=== PATIENT | male | born 1980 | race Caucasian/White ===

== ENCOUNTER 2024-03-18 10:40 | Outpatient (AMB) | payer OTHER, SELFPAY ==
[2024-03-18 10:45] VITALS: PULSE 87; O2SAT 95
--- NOTE | 2024-03-18 10:45 | MHC.OFFVIS ---
Vital Signs 03/18/24 10:45 Position Sitting Pulse 87 Pulse Source Pulse Oximeter Pulse Oximetry (%) 95 Oxygen Delivery Method Room Air Intake Visit Reasons: ENP-Ongoing Headaches-CONF Intake Note: Patient presents for ongoing headaches.patient had a sudden stress headache during intercourse very acute and sharp.headaches still having normal headaches a month. Allergies No Known Allergies Allergy (Verified 03/18/24 10:48) Medication List - Last Reconciled 03/18/24 by Gris Gaspar, GENERAL [employer]OR FORKL[employer] OPERATOR beclomethasone dipropionate 80 mcg/actuation (Qvar RediHaler) inhalation HPI Comments Details: Right-handed 43-yr-old male presents for new pt evaluation of headache disorder. Pt reports that at that end of last year he had 2 headaches triggered by sexual intercourse during the day. He does not believe that he had any headache prior to engaging in sexual intercourse on the day of those attacks. The attack was a ice pick sharp squeezing, unsure of exact head location. The severe pain was sudden and very brief at or just after climax, and then faded away over 10 minutes or so. He denies any other associated symptoms. The 1st attack was more severe, and the 2nd attack about 1.5 weeks later was milder but still significant - just w/o the ice pick sensation. His girlfriend thought that pt had had a similar attack prior, however pt states he does does not think so. Rather, states- in the past, he has had rare episodes of heart palpitations during sexual exertion or physical exertion (for instance climbing [place] on a hot day). 09/13/24: Unremarkable MRI and MRA of the head. PMH and ROS are also notable for:? Musculoskeletal disorders or injury: occasional has tweaked his back- has done PT. Neck tightness. Mood d/o: Social anxiety, Respiratory d/o: Asthma GI d/o: IBS-D, no constipation Family history of migraine or other headache disorder: mother has migraine Pertinent denials include: History of concussion/head injury, Respiratory d/o, CV disease, Clotting or hematology d/o, Endocrine or metabolic d/o, History of seizure, syncope, or drop attacks, Leg Cramps, Lifestyle considerations: Sleep routine: Usual bedtime: 1:30am and wake-up time: 8:30am Sleep difficulties: Endorses: DORA- has just been dx'd after HST and had a PAP titration- states slept better during his PAP titration study. Snoring, Excessive daytime sleepiness, Fatigue,Apneas, Gasping Arousals, Bruxism Caffeine use: 5-6 cans of coke zero, sometimes am iced coffee Substance use:none Exercise:?Is exercising more, is training to do an incline [place] climb in Jul. 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 Headache questionnaire:? Pt's typical headache characteristics: Prodrome symptoms: None Aura: None Pain intensity: mild- moderate Location, quality, characteristics: Throbbing headache, no specific location Associated symptoms: None Postdrome: None Triggers: Exacerbated by bending over. Maybe poor sleep Time of day: No specific time of day- but not during the night. Duration and Frequency: About twice a month, may last 2-4 hrs How does headache impact your life? None Current acute medication use/interventions: Advil, may need to repeat dose x's 1. Current preventative medication use: None Non-pharmacological interventions: None PFSH Surgical History (Updated 03/18/24 @ 10:49 by SANDEEP Gonzales) Hx of appendectomy Family History (Updated 03/18/24 @ 10:49 by SANDEEP Gonzales) Father Cancer Social History (Updated 03/18/24 @ 10:50 by SANDEEP Gonzales) Alcohol intake: never Patient Tobacco Use Status: Never used Tobacco Physical Exam Vital Signs: Last Vital Signs Pulse 87 03/18/24 10:45 Pulse Ox 95 03/18/24 10:45 Oxygen Delivery Method Room Air 03/18/24 10:45 Const Orientation/consciousness: patient oriented x3 HEENT Other: No palpable scalp tenderness. Head: Yes normocephalic Resp Effort & Inspection: normal respiratory effort and able to speak in complete sentences Neuro General: patient oriented x3 Cranial nerves: Yes CN's II-XII intact bilaterally Cognition (Neuro): normal cognition Gait exam (Neuro): Normal gait present Motor exam (neuro): 5/5 motor strength present throughout Deep tendon reflexes (DTR's): Right triceps reflex intensity grade: 2+, Left triceps reflex intensity grade: 2+, Rt Biceps (C5, C6): 2+, Left biceps reflex intensity grade: 2+, Right brachioradialis reflex intensity grade: 2+, Left brachioradialis reflex intensity grade: 2+, Right patellar reflex intensity grade: 2+ and Left patellar reflex intensity grade: 2+ Coordination: [id number] test normal Pupils: Normal pupillary reactivity/response: bilateral Psych Appearance: grossly normal Mental Status: mental status grossly normal Speech and movement: Normal speech and movement present Affect: normal affect Attitude: cooperative Thought process: Normal thought process present Results Reviewed Results Reviewed: 09/13/24, MRA Head W/O contrast [facility] VISIT NUMBER:[id number] Patient Name: Federico Perrin Date of : 1980 Date of Exam: 09-13-2023 Referring Physician: Chris Wilson [facility] [address] [place] [address] Exam: MR Brain Angio (C-) CPT 65629 Room Description: [facility] 3.0T MR Brain Angio (C-) CPT 99450, MR Brain (C-) CPT 21073 INDICATION: Headache associated with sexual activity Headache associated with sexual activity Department Protocol TECHNIQUE: MRI of the brain was performed without contrast utilizing sagittal T1, axial T2, axial FLAIR, axial SWI, and axial DWI sequences. 3D [id number] MRA of the head was performed without contrast. 3D rotational MIP reformats of the vessels were created on a separate workstation and used in the interpretation. COMPARISON: None. FINDINGS: MRI BRAIN: BRAIN and EXTRA-AXIAL SPACES: The ventricles and sulci are normal in size. No abnormal signal is seen in the brain parenchyma, and there is no evidence of restricted diffusion to suggest acute infarction. The brainstem and cerebellum are normal. There is no hemorrhage, midline shift, or mass effect. There is no extra-axial collection. Flow voids are preserved in the dominant intracranial vessels. EXTRACRANIAL SOFT TISSUES: Orbits are unremarkable. Paranasal sinuses and mastoids are unremarkable. BONES: Marrow signal is preserved. MRA HEAD: Anterior circulation: Bilateral intracranial ICAs and their ELLEN and MCA branches are patent. There is no significant stenosis, proximal cutoff, aneurysm, or vascular malformation. Posterior circulation: Bilateral intracranial vertebral arteries, the basilar artery, bilateral superior cerebellar arteries, and slightly dominant left vertebral artery. Bilateral DELIVERY ANALYST branches are patent. There is no significant stenosis, proximal cutoff, aneurysm, or vascular malformation. IMPRESSION: Unremarkable MRI and MRA of the head. Electronically Signed By: Gali Corbin MD Assessment & Plan Assessment & Plan (1) Orgasmic headache: Code(s): G44.82 - Headache associated with sexual activity Category: Medical (2) TTH (tension-type headache): Code(s): G44.209 - Tension-type headache, unspecified, not intractable Category: Medical (3) Obstructive sleep apnea: Code(s): G47.33 - Obstructive sleep apnea (adult) (pediatric) Category: Medical (4) Fatigue: Code(s): R53.83 - Other fatigue Category: Medical Plan Reviewed results of Brain MRI w/o and MRA w/o- unremarkable. However, MRI brain was not done w/ contrast, which would allow for better visualization of posterior fossa. Contrast is required to perform MR venogram. As pt has had severe headache triggered by orgasm, pt is advised to undergo lab work-up and f/u brain MRI w/wo and MRV w/wo- to rule out secondary etiologies in posterior fossa and for venous obstruction/stenosis not visualized on previous imaging modalities. In the meantime, Concur with starting PAP therapy for tx of what certainly does sound like severe obstructive sleep apnea. Monitor episodes of palpitations on exertion- ? effect of deconditioning, heat, and poor sleep quality d/t unknown thus untretaed sleep apnea. Continue slowly increasing physical activity- if palpitations reoccur- consider cardiac work-up. May use Advil prn for tension type headaches. f/u upon review of above and in 6 months or sooner prn. Orders: Orders Erythrocyte Sedimentation Rate Today F41.9 - Anxiety disorder, unspecified, G44.82 - Headache associated with sexual activity, R53.83 - Other fatigue Complete Blood Count Auto Diff Today F41.9 - Anxiety disorder, unspecified, G44.82 - Headache associated with sexual activity, R53.83 - Other fatigue Comprehensive Met. Panel Today F41.9 - Anxiety disorder, unspecified, G44.82 - Headache associated with sexual activity, R53.83 - Other fatigue Rheumatoid Factor Today F41.9 - Anxiety disorder, unspecified, G44.82 - Headache associated with sexual activity, R53.83 - Other fatigue Vitamin D 25-OH (D2 and D3) Today F41.9 - Anxiety disorder, unspecified, G44.82 - Headache associated with sexual activity, R53.83 - Other fatigue NICK Reflex Titer and Pattern Today F41.9 - Anxiety disorder, unspecified, G44.82 - Headache associated with sexual activity, R53.83 - Other fatigue CRP High Sensitivity Today F41.9 - Anxiety disorder, unspecified, G44.82 - Headache associated with sexual activity, R53.83 - Other fatigue Coding Level of Care Code New Pt Level 4 (78704) Diagnoses Orgasmic headache G44.82 TTH (tension-type headache) G44.209 Obstructive sleep apnea G47.33 Fatigue R53.83
== END 2024-03-18 11:52 | disposition home or self-care (01) ==
PROVIDERS: PCP Internal Medicine; Visit Provider Nurse Practitioner Family
DX: G44.82 Headache associated with sexual activity (principal); G44.209 Tension-type headache, unspecified, not intractable; G47.33 Obstructive sleep apnea (adult) (pediatric); R53.83 Other fatigue
CPT/HCPCS: 99204

== ENCOUNTER → 2024-03-18 10:40 | Outpatient (BNVA) | payer OTHER, SELFPAY | PROVIDERS: PCP Internal Medicine; Visit Provider Nurse Practitioner Family ==